=== PATIENT | male | born 1985 | race Caucasian/White ===

== ENCOUNTER 2018-12-02 08:37 | Emergency (ER) | payer OTHER ==
[2018-12-02] MEDS ORDERED: ONDANSETRON HCL IV 4 MG/2 ML VIAL IV ONE (08:55)
[2018-12-02] MEDS ORDERED: 0.9 % SODIUM CHLORIDE 1,000 ML BAG IV ONE (08:55)
[2018-12-02] MEDS ORDERED: ACETAMINOPHEN 1,000 MG/100 ML BTL IVPB ONE (08:56)
--- NOTE | 2018-12-02 09:07 | Emergency Department Record ---
History of Present Illness - General Chief complaint: Nausea, Vomiting, Diarrhea Stated complaint: DIARRHEA Time Seen by Provider: 12/02/18 08:42 Source: Patient Mode of Arrival: Ambulatory Limitations: No limitations - History of Present Illness Initial comments: The patient is here due to a 3 day hx of loose watery stools. He denies any recent travel, fever, chills, or vomiting. The patient was seen yesterday in the and had normal lab work and neg stool studies. His stool cultures are still pending. In the last 24 hours the patient states he has developed mild blood streaking in the stools and LLQ AP. He does have a hx of Diverticulitis and did have a colon resection for an abdominal abscess in the past. Today he also was feeling lightheaded while having a BM on the toilet. The patient states he is going almost every hour since the onset of the diarrhea. MD complaint: Diarrhea Onset/Timin -: Days(s) Description of Diarrhea: Blood-streaked Location: LLQ Improves with: Bowel movement Worsens with: None - Related Data Previous Rx's Medication Instructions Recorded Ciprofloxacin HCl [Cipro] 500 mg PO Q12HR #14 tablet 12/02/18 Metronidazole [Flagyl] 500 mg PO Q8H #21 tablet 12/02/18 Allergies Allergy/AdvReac Type Severity Reaction Status Date / Time No Known Drug Allergies Allergy Unverified 12/01/18 10:25 Travel Screening - Travel/Exposure Within Last 30 Days Have you traveled within the last 30 days?: No - Travel/Exposure Within Last Year Have you traveled outside the [place] in the last year?: No - Additonal Travel Details Have you been exposed to anyone with a communicable illness?: No - Travel Symptoms Symptom Screening: Diarrhea Review of Systems Constitutional: Denies: Chills, Fever Eyes: Denies: Eye discharge ENT: Denies: Congestion Respiratory: Denies: Cough, Dyspnea Cardiovascular: Denies: Arrhythmia Endocrine: Reports: Fatigue Gastrointestinal: Reports: Diarrhea, Nausea Genitourinary: Denies: Dysuria Musculoskeletal: Denies: Arthralgia Skin: Denies: Bruising Past Medical History - SOCIAL HISTORY Smoking Status: Never smoker Alcohol Use: Occasional Drug Use: None - RESPIRATORY Hx Respiratory Disorders: Yes Hx of CPAP: Yes - CARDIOVASCULAR Hx Cardio Disorders: No - NEURO Hx Neuro Disorders: No - GI Hx GI Disorders: Yes Hx Reflux: Yes Hx Hiatal Hernia: Yes - Hx Genitourinary Disorders: No - ENDOCRINE Hx Endocrine Disorders: No - MUSCULOSKELETAL Hx Musculoskeletal Disorders: Yes Hx Arthritis: Yes Hx Back Injury: Yes - PSYCH Hx Psych Problems: No - HEMATOLOGY/ONCOLOGY Hx Hematology/Oncology Disorders: No Family Medical History Any Significant Family History?: No Hx Cancer: Grandparents Hx Diabetes: Grandparents Physical Exam - General General Appearance: Alert, Oriented x3, Cooperative, No acute distress - Head Head exam: Atraumatic, Normocephalic - Eye Eye exam: Normal appearance - Neck Neck exam: Normal inspection, Full ROM. negative: Tenderness - Respiratory Respiratory exam: Normal lung sounds bilaterally. negative: Respiratory distress - Cardiovascular Cardiovascular Exam: Regular rate, Normal rhythm, Normal heart sounds - GI/Abdominal GI/Abdominal exam: Soft, Normal bowel sounds, Tenderness (There is mild LLQ tenderness but with no guarding or rebound.). negative: Guarding, Hernia, R ebound, Rigid - Extremities Extremities exam: Normal inspection, Full ROM, Normal capillary refill. negative: Tenderness Image of Full Body: 1 - Area of pain and mild tenderness. - Back Back exam: Reports: Normal inspection - Neurological Neurological exam: Alert, Normal gait. negative: Abnormal gait, Motor sensory deficit - Psychiatric Psychiatric exam: negative: Anxious - Skin Skin exam: negative: Rash Course Vital Signs 12/02/18 08:50 Temperature 97.9 F Pulse Rate [ 100 H Pulse Ox Probe] Respiratory 16 Rate Blood Pressure 145/111 [Left Arm] Pulse Ox 97 - Reevaluation(s) Reevaluation #1: The patient is doing OK at this time and is feeling better with the [employer]. I did discuss the CT report and the lab work and did recommend a dose of IV Abx's today and orals starting tomorrow. I also did discuss the patient's ventral hernia and he states he has had that for a long time and it does get hard and tender at times. Presently he denies any pain or tenderness in the area. Because of that we will refer the patient to Dr. Moore for Wednesday. 12/02/18 09:57 Reevaluation #2: The patient is doing very well at this time. We did get him an appointment for Wednesday with Dr. Moore for the ventral hernia. The patient is to take his home pain medicines and to start the PO Abx's tomorrow. He is to return to the ER for any worsening symptoms. 12/02/18 10:30 Medical Decision Making - Data Complexity MDM Data: Labs Ordered and/or Reviewed, X-Ray Ordered and/or Reviewed - Lab Data Result diagrams: 12/02/18 09:00 12/02/18 09:00 - Radiology Data Radiology results: Report reviewed (Abd CT: mild colon and rectum wall thickening poss due to incomplete distension. Mild descending colon di verticulitis. Neg for abscess or free air. Also non-obstructing ventral wall hernia.) Disposition Disposition: Discharge Clinical Impression: Diverticulitis large intestine Qualifiers: Diverticulitis bleeding: unspecified bleeding status Diverticulitis complication: unspecified complication status Qualified Code(s): K57.32 - Diverticulitis of large intestine without perforation or abscess without bleeding Disposition: Home, Self-Care Condition: (2) Stable Instructions: Diverticulitis (ED) Additional Instructions: Please take your home pain medicines and please see Dr. Moore on Wednesday in the [facility]. Start the Cipro and Flagyl tomorrow and return to the ER for any worsening pain, any fever, vomiting or worsening blood in the stool. Prescriptions: Ciprofloxacin HCl [Cipro] 500 mg PO Q12HR #14 tablet Metronidazole [Flagyl] 500 mg PO Q8H #21 tablet Referrals: [facility] [Provider Group] Forms: Patient Portal Access Time of Disposition: 10:34 Quality - Quality Measures Quality Measures: N/A - Blood Pressure Screening View Details: Yes Does Patient Have Any of the Following: No Blood Pressure Classification: Pre-Hypertensive BP Reading Systolic Measurement: 132 Diastolic Measurement: 55 Screening for High Blood Pressure: < Pre-Hypertensive BP, F/U Documented > [G8950] Pre-Hypertensive Follow-up Interventions: Referral to alternative/primary care provider.
[2018-12-02 09:08] LABS: ABSOLUTE NEUTROPHIL COUNT 6.14; BASO % 0.1 % (0-6); EOS % 1.7 % (0-6); GRAN % 76.5 % (47-80); HEMATOCRIT 48.3 % (42.0-52.0); LYMPH % 9.5 % (16-45); MEAN CELL VOLUME 93.6 fl (81-97); MEAN CORPUSCULAR HGB CONC 33.1 g/dl (32-36); MONO % 12.2 % (0-9); PLATELET COUNT 273 K/uL (130-400); RED BLOOD COUNT 5.16 M/uL (4.40-5.70); RED CELL DISTRIBUTION WIDTH 14.4 % (11.5-14.5)
[2018-12-02 09:21] LABS: BLOOD UREA NITROGEN 11 mg/dL (6-20); CREATININE 0.9 mg/dL (0.7-1.2); EST GLOMERULAR FILTRATION RATE > 60 mL/min
[2018-12-02 09:22] LABS: LIPASE 23 U/L (13-60); TOTAL PROTEIN 7.4 g/dL (6.6-8.7)
[2018-12-02 09:24] LABS: GLUCOSE,RANDOM 99 mg/dL (74-109)
[2018-12-02 09:27] LABS: ALBUMIN 4.4 g/dL (4.0-5.0); ALKALINE PHOSPHATASE 62 U/L (40-129); ALT/SGPT 29 U/L (<41); AST/SGOT 20 U/L (10.0-50.0); BILIRUBIN,DIRECT < 0.2 mg/dL (0-0.3)
[2018-12-02] MEDS ORDERED: ERTAPENEM SODIUM 1 G in 0.9 % SODIUM CHLORIDE 100ML 100 ML IVPB ONE (09:54)
--- NOTE | 2018-12-02 13:10 | CT SCAN REPORT ---
EXAM: CT OF THE ABDOMEN AND PELVIS WITHOUT CONTRAST HISTORY: LEFT LOWER QUADRANT ABDOMINAL PAIN WITH DIARRHEA FOR THREE DAYS. BLOOD IN STOOL TODAY. PRIOR PARTIAL COLON RESECTION. TECHNIQUE: Helical CT examination of the abdomen and pelvis was performed without oral or intravenous contrast administration. Lack of oral and IV contrast utilization limits evaluation of the bowel and solid viscera respectively. Comparison: None. FINDINGS: There is a small sliding type hiatal hernia. The heart is not enlarged. Mild dependent atelectasis is noted in each lung base. There is a somewhat mosaic pattern of the lower lungs. This can be seen with obstructive airways disease. The liver, spleen, pancreas, adrenal glands, and kidneys are normal in appearance. The gallbladder is unremarkable and no biliary ductal dilatation is seen. No intraabdominal nor retroperitoneal lymphadenopathy. The vasculature is normal in caliber. No pelvic mass, lymphadenopathy, or free pelvic fluid. No intrinsic urinary bladder abnormality identified. There is mild fat density prominence in each inguinal canal consistent with spermatic cord lipomas or fat within small inguinal hernia sacs. There is apparent mild diffuse wall thickening of the colon. The majority of this likely relates to incomplete distention. Mild diverticulosis is present throughout the left colon. There is mild mesenteric fat stranding centered about a diverticulum within the mid descending colon suspicious for mild diverticulitis. No extraluminal air nor abscess. The appendix is visualized and normal in appearance. No pneumoperitoneum. There is a moderate sized ventral wall hernia located 3 cm above the ortega. It contains both fat and loops of small bowel. Minimal fat stranding questioned. This measures 4.2 x 12 x 6 cm. Clinical correlation is recommended. There are also small umbilical/periumbilical hernias without evidence of complication. No lytic or blastic bone lesion. There are mild degenerative changes of the lower lumbar spine. There is a retroaortic left renal vein, a normal variant. IMPRESSION: 1. APPARENT MILD DIFFUSE WALL THICKENING OF THE COLON AND RECTUM. IT IS INDETERMINATE WHETHER THIS RELATES TO INCOMPLETE DISTENTION OR MILD DIFFUSE INFLAMMATION. THERE IS, HOWEVER, MESENTERIC FAT STRANDING ADJACENT TO A DIVERTICULUM ARISING ANTERIORLY FROM THE MID DESCENDING COLON SUSPICIOUS FOR ACUTE DIVERTICULITIS. NO ASSOCIATED ABSCESS NOR EXTRALUMINAL AIR. 2. NORMAL APPENDIX. NO MECHANICAL BOWEL OBSTRUCTION. 3. NOT MENTIONED ABOVE IS APPARENT BORDERLINE TO MILD WALL THICKENING OF THE TERMINAL ILEUM. THIS MAY RELATE TO INCOMPLETE DISTENTION THOUGH MILD CHRONIC INFLAMMATORY CHANGE CANNOT BE EXCLUDED. 4. VENTRAL WALL HERNIA CONTAINING FAT AND BOWEL ABOVE THE UMBILICUS. MINOR FAT STRANDING IS NOTED IN THIS REGION. THIS IS NONSPECIFIC. CORRELATION WITH PHYSICAL EXAMINATION IS RECOMMENDED. 5. TINY FAT FILLED UMBILICAL/PERIUMBILICAL HERNIAS APPEAR UNCOMPLICATED. 6. MILD FAT DENSITY PROMINENCE WITHIN THE INGUINAL CANAL, DISCUSSED ABOVE. 7. SMALL SLIDING TYPE HIATAL HERNIA. JOB NUMBER: [id number] [facility]
== END 2018-12-02 10:41 | disposition home or self-care (01) ==
LOC: ER 08:37
DX: K57.32 Diverticulitis of large intestine without perforation or abscess without bleeding (principal); R11.2 Nausea with vomiting, unspecified; R19.7 Diarrhea, unspecified; R10.32 Left lower quadrant pain
CPT/HCPCS: 74176; 80048; 80076; 83690; 85025; 86140; 96365; 96366; 96375; 99284; J2405; J7030

== ENCOUNTER 2019-05-25 21:18 | Emergency (ER) | payer OTHER ==
[2019-05-25] MEDS ORDERED: ONDANSETRON HCL IV 4 MG/2 ML VIAL IVP ONE (21:25)
[2019-05-25] MEDS ORDERED: HYOSCYAMINE SULFATE ODT 0.125 MG TAB.SUBL SL ONE (21:28)
[2019-05-25] MEDS ORDERED: 0.9 % SODIUM CHLORIDE 1000ML 1,000 ML IV SCH (21:30)
--- NOTE | 2019-05-25 21:33 | Emergency Department Record ---
History of Present Illness - General Chief complaint: Nausea, Vomiting, Diarrhea Stated complaint: VOMITTING Time Seen by Provider: 05/25/19 21:21 Source: Patient Mode of Arrival: Ambulatory Limitations: No limitations - History of Present Illness Initial comments: 33 yo male presents to ED for evaluation of abdominal pain, nausea, vomiting, and loose stools that began approximately 3.5 hours ago. Patient denies fever symptoms, does report previous history of bowel resection due to diverticulitis. Patient also reports previous post-operative abdominal abscess following treatment. Patient denies health problems at his baseline. MD complaint: Abdominal pain, Diarrhea, Nausea, Vomiting Onset/Timin -: Hour(s) Description of Diarrhea: Water Associated Abdominal Pain: Yes Location: Diffuse Radiation: None Severity: Moderate Quality: Cramping Consistency: Constant Improves with: None Worsens with: None Associated Symptoms: Denies other symptoms - Related Data Allergies Allergy/AdvReac Type Severity Reaction Status Date / Time No Known Drug Allergies Allergy Verified 05/25/19 21:33 Review of Systems Constitutional: Denies: Chills, Fever, Malaise, Night sweats Eyes: Denies: Eye discharge, Eye pain ENT: Denies: Congestion, Ear pain, Epistaxis Respiratory: Denies: Cough, Dyspnea Cardiovascular: Denies: Chest pain, Dyspnea on exertion Endocrine: Denies: Fatigue, Heat or cold intolerance Gastrointestinal: Reports: Abdominal pain, Diarrhea, Nausea, Vomiting. Denies: Constipation Genitourinary: Denies: Incontinence, Retention Musculoskeletal: Denies: Arthralgia, Back pain Skin: Denies: Bruising, Change in color Neurological: Denies: Abnormal gait, Confusion, Headache, Seizure Psychiatric: Denies: Anxiety Hematological/Lymphatic: Denies: Anemia, Blood Clots Past Medical History - SOCIAL HISTORY Smoking Status: Never smoker Drug Use: None - RESPIRATORY Hx Respiratory Disorders: Yes Hx of CPAP: Yes - CARDIOVASCULAR Hx Cardio Disorders: No - NEURO Hx Neuro Disorders: No - GI Hx GI Disorders: Yes Hx Reflux: Yes Hx Hiatal Hernia: Yes - Hx Genitourinary Disorders: No - ENDOCRINE Hx Endocrine Disorders: No - MUSCULOSKELETAL Hx Musculoskeletal Disorders: Yes Hx Arthritis: Yes Hx Back Injury: Yes - PSYCH Hx Psych Problems: No - HEMATOLOGY/ONCOLOGY Hx Hematology/Oncology Disorders: No Family Medical History Hx Cancer: Grandparents Hx Diabetes: Grandparents Physical Exam - General General Appearance: Alert, Oriented x3, Cooperative, Mild distress Limitations: No limitations - Head Head exam: Atraumatic, Normocephalic, Normal inspection Head exam detail: negative: Abrasion, Contusion, Pollard's sign, General tenderness, Hematoma, Laceration - Eye Eye exam: Normal appearance. negative: Conjunctival injection, Periorbital swelling, Periorbital tenderness, Scleral icterus - ENT Ear exam: negative: Auricular hematoma, Auricular trauma Nasal Exam: negative: Active bleeding, Discharge, Dried blood, Foreign body - Neck Neck exam: Normal inspection. negative: Meningismus, Tenderness - Respiratory Respiratory exam: Normal lung sounds bilaterally. negative: Rales, Respiratory distress, Rhonchi, Stridor - Cardiovascular Cardiovascular Exam: Regular rate, Normal rhythm, Normal heart sounds - GI/Abdominal GI/Abdominal exam: Soft, Tenderness (Mild diffuse TTP on examination, no rebound, no guarding symptoms.). negative: Rebound, Rigid - Rectal Rectal exam: Deferred - exam: Deferred - Extremities Extremities exam: Normal inspection. negative: Pedal edema, Tenderness - Back Back exam: Denies: CVA tenderness (R), CVA tenderness (L) - Neurological Neurological exam: Alert, Normal gait, Oriented X3 - Psychiatric Psychiatric exam: Normal affect, Normal mood - Skin Skin exam: Normal color. negative: Abrasion Type of lesion: negative: abrasion Course Vital Signs 05/25/19 21:24 Temperature 98.3 F Pulse Rate [ 78 Pulse Ox Probe] Respiratory 24 Rate Blood Pressure 135/78 [Left Arm] Pulse Ox 94 L - Reevaluation(s) Reevaluation #1: 05/25/19 22:20 Laboratory studies were reviewed and appear grossly unremarkable for an acute process. Patient is currently in CT at this time. Reevaluation #2: 05/25/19 22:45 CT Abdomen and Pelvis: Cecille-umbilical hernia with small bowel present within the hernia sac resulting in partial SBO Normal appendix Small hiatal hernia Small fat-containing inguinal hernia Moderate sigmoid diverticulosis without diverticulitis Case was discussed with Dr. Moore, will initiate transfer ER-ER for surgical evaluation. 05/25/19 22:51 Case was discussed with Dr. Russell, will accept the patient ER-ER for surgical consultation. Patient is requesting transfer via private car, mother will drive him directly to the ED. Patient was instructed to not eat or drink prior to evaluation. Based on my examination, the patient is alert, oriented, and answers all ques tions appropriately. Patient appears to have the capacity to make rational decisions based on my examination. Patients family was present for the duration of our discussion as well. Medical Decision Making - Lab Data Result diagrams: 05/25/19 21:41 05/25/19 21:41 Disposition Disposition: Transfer Clinical Impression: Umbilical hernia Qualifiers: Obstruction and gangrene presence: without obstruction or gangrene Qualified Code(s): K42.9 - Umbilical hernia without obstruction or gangrene Partial bowel obstruction Qualifiers: Intestinal obstruction type: unspecified Qualified Code(s): K56.600 - Partial intestinal obstruction, unspecified as to cause Disposition: Acute Care Hospital Transfer Transfer To: [facility] Reason For Transfer: Surgical evaluation Accepting Physician: Drew Moore Time Discussed w/Accepting Physician: 22:49 Condition: (2) Stable Forms: Patient Portal Access Time of Disposition: 22:49 Quality - Quality Measures Quality Measures: N/A - Blood Pressure Screening Does Patient Have Any of the Following: No Blood Pressure Classification: Hypertensive Reading Systolic Measurement: 147 Diastolic Measurement: 72 Screening for High Blood Pressure: < First Hypertensive BP, F/U Documented > [G8950] First Hypertensive Follow-up Interventions: Referral to alternative/primary care provider.
[2019-05-25 21:52] LABS: ABSOLUTE NEUTROPHIL COUNT 9.49; HEMATOCRIT 51.6 % (42.0-52.0); HEMOGLOBIN 16.7 gm/dl (14.0-18.0); MEAN CELL VOLUME 90.8 fl (81-97); MEAN CORPUSCULAR HEMOGLOBIN 29.4 pg (27-33); MEAN CORPUSCULAR HGB CONC 32.4 g/dl (32-36); MEAN PLATELET VOLUME 9.1 fl (7.4-10.4); PLATELET COUNT 345 K/uL (130-400); RED BLOOD COUNT 5.68 M/uL (4.40-5.70); RED CELL DISTRIBUTION WIDTH 14.2 % (11.5-14.5); WHITE BLOOD COUNT W/O DIFF 11.7 K/uL (4.2-12.2)
[2019-05-25 22:04] LABS: BLOOD UREA NITROGEN 15 mg/dL (6-20)
[2019-05-25 22:05] LABS: EST GLOMERULAR FILTRATION RATE > 60 mL/min; LIPASE 18 U/L (13-60); TOTAL PROTEIN 8.7 g/dL (6.6-8.7)
[2019-05-25 22:07] LABS: GLUCOSE,RANDOM 150 mg/dL (74-109)
[2019-05-25 22:10] LABS: ALB/GLOB RATIO 1.2 (1.1-1.8); ALBUMIN 4.8 g/dL (4.0-5.0); ALKALINE PHOSPHATASE 66 U/L (40-129); ALT/SGPT 33 U/L (<41); AST/SGOT 22 U/L (10.0-50.0)
[2019-05-25] MEDS ORDERED: HYDROMORPHONE HCL 2 MG/ML VIAL IVP ONE (22:27)
--- NOTE | 2019-05-25 22:38 | CT SCAN REPORT ---
EXAMINATION: CT Abdomen and Pelvis with IV Contrast EXAM DATE: 05/25/2019 10:34 PM TECHNIQUE: CT imaging of the abdomen and pelvis was performed with intravenous contrast. Coronal and sagittal images were reconstructed. IV Contrast: The amount and type of contrast are recorded in the medical record. INDICATION: Abdominal pain, vomiting, loose stools COMPARISON: Abdomen pelvis CT 12/02/2018 ENCOUNTER: Not applicable CT ABDOMEN AND PELVIS FINDINGS: Lung Bases: Included extent of the lung bases are clear. Small hiatal hernia. Hepatobiliary: The liver has a normal size with a smooth surface. The hepatic and portal veins appear patent. Normal gallbladder. Pancreas: The pancreas is normal. Spleen: The spleen is not enlarged. Adrenals: The adrenal glands are normal. Kidneys, Ureters, & Bladder: Both kidneys have a normal size and there is no hydronephrosis. Both ur eters have a normal caliber and the urinary bladder is unremarkable. Gastrointestinal: The stomach is normal. There is mildly dilated fluid-filled bowel in the central ab domen measuring up to 3.1 cm. There is a loop of small bowel which extends into a periumbilical herni a sac. 2.9 cm of diastases of the rectus musculature. The hernia sac measures 13.5 x 6 x 8.5 cm. Prev iously the hernia sac measures 11.5 x 4.3 cm and contained a similar loop of bowel. There is no exten sive bowel wall thickening to suggest strangulation. Transition point at the hernia sac. Moderate sigmoid colon diverticulosis with no diverticulitis. Normal appendix. Reproductive Organs: Unremarkable Lymphatic System: There is no adenopathy within the abdomen or pelvis. Vasculature: Normal caliber abdominal aorta. Peritoneum: No free fluid, free air, or inflammation Abdominal Wall & Musculoskeletal: No suspicious bone lesions. Fat-containing inguinal hernias. IMPRESSION: 1. Slight increase in size of periumbilical hernia containing a loop of small bowel now resulting in partial small bowel obstruction. There is no gross evidence of strangulation although the possibility of incarceration is not excluded. 2. Normal appendix. 3. Moderate sigmoid colon diverticulosis with no evidence of acute diverticulitis. 4. Small hiatal hernia. 5. Small fat-containing inguinal hernias. Dictated by: Terry Deng MD on 05/25/2019 10:32 PM. .
== END 2019-05-25 23:19 | disposition short-term general hospital (02) ==
LOC: ER 21:18
DX: K42.0 Umbilical hernia with obstruction, without gangrene (principal); K56.600 Partial intestinal obstruction, unspecified as to cause; R11.2 Nausea with vomiting, unspecified; R19.7 Diarrhea, unspecified
CPT/HCPCS: 99285 ×2; 96374; 96375; 83690; 80053; 85027; 74177; Q9967; J1980; J2405; J1170; J7030